=== PATIENT | male | born 1965 | race Caucasian/White ===

== ENCOUNTER 2018-10-25 10:32 | Emergency (ER) | payer SELFPAY ==
[2018-10-25] MEDS: IBUPROFEN 600 MG TAB PO (11:52)
== END 2018-10-25 12:08 | disposition home or self-care (01) ==
LOC: FTE 10:32
DX: M54.2 Cervicalgia (principal); M54.9 Dorsalgia, unspecified; M24.511 Contracture, right shoulder
CPT/HCPCS: 99282